=== PATIENT | female | born 1985 | race Caucasian/White ===

== ENCOUNTER 2021-01-22 10:38 | Emergency (ER) | payer BC, MEDICAID ==
[~2021-01-22] VITALS: Ht 149.9 cm; Wt 54.4 kg
--- NOTE | 2021-01-22 10:50 | NUR ---
BIB MOTHER FOR SACRAL ABSCESS X 2 WEEKS. RATES PAIN 6/10. WILL CONTINUE TO MONITOR THE PATIENT.
[2021-01-22] MEDS ORDERED: PROPOFOL 20 ML IV ONE (11:01)
[2021-01-22] MEDS ORDERED: LIDOCAINE 1%-EPI 1:100,000 20 ML VIAL ONE (11:06)
[2021-01-22] MEDS: LIDOCAINE 2%-EPI 1:100,000 30 ML VIAL TP ONE (11:19)
[2021-01-22] MEDS: PROPOFOL 200 MG/20 ML VIAL IV ONE (11:39)
--- NOTE | 2021-01-22 11:39 | NUR ---
125 MG DIPRIVAN GIVEN IN INCREMENTS PER DR ROJO AND UNDER DR ROJO SUPERVISION
--- NOTE | 2021-01-22 12:02 | NUR ---
THE PATIENT AWAKE, ALERT AND ORIENETD X3. MOTHER AT THE BEDSIDE. VSS STABLE
[2021-01-22] MEDS ORDERED: SULF1TAB48 PO (12:05)
--- NOTE | 2021-01-22 13:25 | NUR ---
The patient is alert and oriented x4. Denies pain. In room air and denies SOB. Respiration regular and unlabored. Oxygen saturation WNL. Patient discharged to home in stable condition. Written and verbal after care instructions given. Patient verbalizes understanding of instruction. The patient leaving the hospital with mother who is the responsible republican per patient and mother.
[2021-01-22 13:27] VITALS: BP 114/65
== END 2021-01-22 13:27 | disposition home or self-care (01) ==
LOC: ER 10:45
DX: K61.1 Rectal abscess (principal)
CPT/HCPCS: 46040; 99152; 99285; A6403 ×2; A6407; J2704; J3490; G0500

== ENCOUNTER 2021-01-24 15:10 | Emergency (ER) | payer BC ==
[~2021-01-24] VITALS: Ht 152.4 cm; Wt 63.5 kg
[~2021-01-24 15:10] MED LIST: SULF1TAB48 PO
[2021-01-24 15:22] VITALS: BP 107/78
--- NOTE | 2021-01-24 15:31 | NUR ---
BIB FAMILY (MOM) FOR FOR WOUND CHECK, I&D DONE 2 DAYS AGO. AOX4, NO SOB, NO S/O ANY ACUTE DISTRESS NOTED. DENIES PAIN. PATIENT KEPT COMFORTABLE. SAFETY PRECAUTIONS IN PLACE. WILL CONTINUE TO MONITOR
--- NOTE | 2021-01-24 15:57 | NUR ---
Patient discharged to home in stable condition. Written and verbal after care instructions given. Patient verbalizes understanding of instruction.
== END 2021-01-24 15:57 | disposition home or self-care (01) ==
LOC: ER 15:12
DX: Z48.01 Encounter for change or removal of surgical wound dressing (principal)
CPT/HCPCS: 99281; A6407

== ENCOUNTER 2021-01-27 13:49 | Emergency (ER) | payer BC ==
[~2021-01-27] VITALS: Ht 152.4 cm; Wt 63.5 kg
[2021-01-27 14:07] VITALS: BP 106/70
--- NOTE | 2021-01-27 14:14 | NUR ---
THE PATIENT BIB MOTHER FOR WOUND CHECK AND REQUESTING DRESSING CHANGE, SACRAL AREA. I&D 5 DAYS AGO. DENIES PAIN. WILL CONTINUE TO MONITOR THE PATIENT.
== END 2021-01-27 16:02 | disposition home or self-care (01) ==
LOC: ER 13:49
DX: Z48.01 Encounter for change or removal of surgical wound dressing (principal); L02.31 Cutaneous abscess of buttock
CPT/HCPCS: 99281; A6407

== ENCOUNTER 2021-10-13 09:03 | Emergency (ER) | payer BC ==
[~2021-10-13] VITALS: Ht 152.4 cm; Wt 64.0 kg
[2021-10-13] MEDS ORDERED: MONT10TA22 PO (09:39)
[2021-10-13] MEDS ORDERED: ALBU18HF2 INH ×2 (09:39→11:01)
[2021-10-13] MEDS ORDERED: ALBU8.5H8 IH (09:39)
[2021-10-13] MEDS ORDERED: BENZ200C53 PO ×2 (09:40→11:01)
[2021-10-13] MEDS ORDERED: CETI10TA14 PO (09:40)
[2021-10-13] MEDS ORDERED: predniSONE 20 MG TABLET ONE (09:54)
[2021-10-13] MEDS ORDERED: ALBUTEROL FS 2.5 MG/3 ML VIAL.NEB ONE (09:55)
[2021-10-13] MEDS ORDERED: IPRATROPIUM NEB FS 0.5 MG/2.5 ML AMPUL.NEB ONE (09:55)
[2021-10-13] MEDS ORDERED: IPRATROPIUM NEB FS 0.5 MG/2.5 ML AMPUL.NEB NEB ONE (10:00)
[2021-10-13] MEDS ORDERED: ALBUTEROL FS 2.5 MG/3 ML VIAL.NEB CONTNEB ONE (10:00)
[2021-10-13] MEDS ORDERED: predniSONE 20 MG TABLET PO ONE (10:00)
[2021-10-13] MEDS ORDERED: PRED20TA PO (11:01)
[2021-10-13 11:58] VITALS: BP 125/62
== END 2021-10-13 11:57 | disposition home or self-care (01) ==
LOC: ER 09:07
DX: J45.901 Unspecified asthma with (acute) exacerbation (principal); Z20.822 Contact with and (suspected) exposure to COVID-19; F79 Unspecified intellectual disabilities
CPT/HCPCS: 71045; 93005; 94644; 99285; C9803; J7512; U0003

== ENCOUNTER 2021-11-03 23:56 | Emergency (ER) | payer BC ==
[~2021-11-03] VITALS: Ht 152.4 cm; Wt 63.5 kg
[~2021-11-03 23:56] MED LIST changes: +ALBU18HF2 INH; +ALBU8.5H8 IH; +BENZ200C53 PO; +CETI10TA14 PO; +MONT10TA22 PO; +PRED20TA PO; -SULF1TAB48 PO
--- NOTE | 2021-11-04 00:10 | NUR ---
BIBS FOR C/O SOB AND COUGH. HX ASTHMA. ALBUTEROL INHALER USED ENTRY MANAGER WITHOUT RELIEF. WHEEZES NOTED BILAT ON AUSULTATION. PT INCREASED RR ANDDIFFICULTY SPEAKING FULL SENTENCES. 96% ON RA. PLACED ON SUPPLEMENTAL O2 AND RT PAGED. CONSERVATOR AT BEDSIDE.
[2021-11-04] MEDS ORDERED: IPRATROPIUM NEB FS 0.5 MG/2.5 ML AMPUL.NEB ONE (00:12)
[2021-11-04] MEDS ORDERED: ALBUTEROL FS 2.5 MG/3 ML VIAL.NEB ONE (00:12)
--- NOTE | 2021-11-04 00:12 | NUR ---
RT AT BEDSIDE FOR BREATHING TX
--- NOTE | 2021-11-04 00:15 | NUR ---
PREG WAIVER SIGNED XRAY CALLED AND NOTIFIED
--- NOTE | 2021-11-04 00:19 | NUR ---
XRAY AT BEDSIDE
[2021-11-04] MEDS ORDERED: DEXAMETHASONE SOD PHOSPHATE 10 MG/ML VIAL ONE (00:29)
[2021-11-04] MEDS ORDERED: ALBUTEROL FS 2.5 MG/3 ML VIAL.NEB CONTNEB ONE (00:30)
[2021-11-04] MEDS ORDERED: DEXAMETHASONE SOD PHOSPHATE 4 MG/ML VIAL IM ONE (00:30)
[2021-11-04] MEDS ORDERED: IPRATROPIUM NEB FS 0.5 MG/2.5 ML AMPUL.NEB NEB ONE (00:30)
[2021-11-04] MEDS ORDERED: ALBUTEROL FS 2.5 MG/0.5 ML VIAL.NEB NEB ONE ×2 (00:30→02:00)
[2021-11-04] MEDS ORDERED: Magnesium 1GM/D5W 100ML PREMIX 100 ML IV ONE ×2 (01:42→02:37)
[2021-11-04] MEDS ORDERED: ALBUTEROL FS 2.5 MG/0.5 ML VIAL.NEB ONE (01:48)
[2021-11-04] MEDS ORDERED: Magnesium 1GM/D5W 100ML PREMIX 200 ML IV ONE (02:00)
--- NOTE | 2021-11-04 03:01 | NUR ---
eben (conservator/mom)
[2021-11-04] MEDS ORDERED: ALBU2.5V38 NEB (03:22)
[2021-11-04] MEDS ORDERED: PRED50TA PO (03:22)
--- NOTE | 2021-11-04 03:50 | NUR ---
ATTEMPTED TO CALL CONSERVATOR. NO PICKUP.
--- NOTE | 2021-11-04 04:14 | NUR ---
Called Estrella (conservator/mom) for PT to be D/C & picked up, with no parts picker. Left voice message.
--- NOTE | 2021-11-04 05:18 | NUR ---
Called Estrella (conservator/mom) for PT to be D/C & picked up, with no moss picker.
[2021-11-04 05:53] VITALS: BP 123/82
--- NOTE | 2021-11-04 05:53 | NUR ---
Patient discharged to home in stable condition. Written and verbal after care instructions given. Patient verbalizes understanding of instruction. IV removed and Pt picked up by father.
== END 2021-11-04 05:53 | disposition home or self-care (01) ==
LOC: ER 23:59
DX: J98.01 Acute bronchospasm (principal); Z86.69 Personal history of other diseases of the nervous system and sense organs; Z88.0 Allergy status to penicillin; Z79.899 Other long term (current) drug therapy
CPT/HCPCS: 71045; 94640; 94644; 96365; 96366; 96372; 99285; J1100; J3475 ×2

== ENCOUNTER 2022-01-12 15:03 | Emergency (ER) | payer BC ==
[~2022-01-12] VITALS: Ht 152.4 cm; Wt 63.5 kg
[~2022-01-12 15:03] MED LIST changes: +ALBU2.5V38 NEB; +PRED50TA PO
--- NOTE | 2022-01-12 15:18 | NUR ---
PT C/O ASTHMA ATTACK, O2 SAT 92%RA. PLACED ON 2L OF O2. DENIES CP, DIZZINESS, N/V AT THIS TIME. AWAITING EVAL BY ERMD & WILL CONT TO MONITOR.
[2022-01-12] MEDS ORDERED: predniSONE 20 MG TABLET PO ONE (16:00)
[2022-01-12] MEDS ORDERED: IPRATROPIUM NEB FS 0.5 MG/2.5 ML AMPUL.NEB NEB ONE (16:00)
[2022-01-12] MEDS ORDERED: ALBUTEROL FS 2.5 MG/3 ML VIAL.NEB NEB ONE (16:00)
[2022-01-12] MEDS ORDERED: predniSONE 20 MG TABLET ONE (16:10)
[2022-01-12] MEDS ORDERED: ALBUTEROL FS 2.5 MG/0.5 ML VIAL.NEB ONE (16:21)
[2022-01-12] MEDS ORDERED: IPRATROPIUM NEB FS 0.5 MG/2.5 ML AMPUL.NEB ONE (16:21)
[2022-01-12] MEDS ORDERED: ALBU18HF2 INH (18:03)
[2022-01-12] MEDS ORDERED: PRED50TA PO (18:03)
--- NOTE | 2022-01-12 18:09 | NUR ---
Patient discharged to home in stable condition. Written and verbal after care instructions given. Patient verbalizes understanding of instruction.
[2022-01-12 18:10] VITALS: BP 127/74
== END 2022-01-12 18:10 | disposition home or self-care (01) ==
LOC: ER 15:41
DX: J45.901 Unspecified asthma with (acute) exacerbation (principal); Z88.0 Allergy status to penicillin; Z79.899 Other long term (current) drug therapy
CPT/HCPCS: 99283; 94640; J7512

== ENCOUNTER 2022-01-26 12:29 | Emergency (ER) | payer BC ==
[~2022-01-26] VITALS: Ht 152.4 cm; Wt 49.0 kg
[2022-01-26] MEDS ORDERED: ALBU8.5H8 INH (12:49)
[2022-01-26] MEDS ORDERED: PRED50TA PO (12:49)
--- NOTE | 2022-01-26 13:24 | NUR ---
Patient discharged to home in stable condition. Written and verbal after care instructions given. Patient verbalizes understanding of instruction.
[2022-01-26 13:25] VITALS: BP 108/61
== END 2022-01-26 13:25 | disposition home or self-care (01) ==
LOC: ER 12:32
DX: J45.901 Unspecified asthma with (acute) exacerbation (principal); J45.909 Unspecified asthma, uncomplicated; Z88.0 Allergy status to penicillin; Z79.899 Other long term (current) drug therapy

== ENCOUNTER 2022-02-06 18:17 | Emergency (ER) | payer BC ==
[~2022-02-06] VITALS: Ht 152.4 cm; Wt 68.5 kg
[~2022-02-06 18:17] MED LIST changes: +ALBU8.5H8 INH
--- NOTE | 2022-02-06 18:21 | NUR ---
CAME IN ACCOMPANIED BY SISTER "ASTHMA ATTACK SINCE LAST NIGHT" TO ER BED 6, HOOKED TO MONITOR, CHANGED TO HOSP GOWN, WARM BLANKET PROVIDED. ON 4LPM O2 VIA NC, O2 SATURATION AT 97%.
--- NOTE | 2022-02-06 18:35 | NUR ---
DR ORTIZ AT BEDSIDE
[2022-02-06] MEDS ORDERED: methylPREDNISolone SOD SUCC 125 MG/2ML VIAL ONE (18:42)
[2022-02-06] MEDS ORDERED: Magnesium 1GM/D5W 100ML PREMIX 100 ML IV ONE ×2 (18:42→19:16)
[2022-02-06] MEDS ORDERED: IPRATROPIUM NEB FS 0.5 MG/2.5 ML AMPUL.NEB ONE (18:47)
[2022-02-06] MEDS ORDERED: ALBUTEROL FS 2.5 MG/3 ML VIAL.NEB ONE (18:47)
[2022-02-06] MEDS ORDERED: Magnesium 1GM/D5W 100ML PREMIX 200 ML IV ONE (19:00)
[2022-02-06] MEDS ORDERED: IPRATROPIUM NEB FS 0.5 MG/2.5 ML AMPUL.NEB NEB ONE (19:00)
[2022-02-06] MEDS ORDERED: methylPREDNISolone SOD SUCC 125 MG/2ML VIAL IV ONE (19:00)
[2022-02-06] MEDS ORDERED: ALBUTEROL FS 2.5 MG/3 ML VIAL.NEB NEB ONE (19:00)
--- NOTE | 2022-02-06 19:02 | NUR ---
ONGOING BREATHING TX
[2022-02-06] MEDS ORDERED: MOME13HF2 INH (19:57)
--- NOTE | 2022-02-06 19:57 | NUR ---
Patient discharged to home in stable condition. Written and verbal after care instructions given. Patient verbalizes understanding of instruction.
[2022-02-06] MEDS ORDERED: ALBU18HF2 INH (20:09)
[2022-02-06 20:23] VITALS: BP 121/70
== END 2022-02-06 20:23 | disposition home or self-care (01) ==
LOC: ER 18:21
DX: J45.901 Unspecified asthma with (acute) exacerbation (principal); R05.9 Cough, unspecified; Z88.0 Allergy status to penicillin; Z79.899 Other long term (current) drug therapy
CPT/HCPCS: 99284; 96365; 96366; 96375; 93005; 94640; J2930; J3475 ×2

== ENCOUNTER 2022-02-16 16:50 | Emergency (ER) | payer BC ==
[~2022-02-16] VITALS: Ht 144.8 cm; Wt 72.6 kg
[~2022-02-16 16:50] MED LIST changes: +MOME13HF2 INH
--- NOTE | 2022-02-16 17:15 | NUR ---
BIBS C/O "Have asthma/sob going on x4mos- worse today". AMBULATORY, PLACED ON BED, BREATHING EVEN AND UNLABORED SATURATING AT 92%RA
[2022-02-16] MEDS ORDERED: IPRATROPIUM NEB FS 0.5 MG/2.5 ML AMPUL.NEB ONE ×3 (17:25→20:40)
[2022-02-16] MEDS ORDERED: ALBUTEROL FS 2.5 MG/3 ML VIAL.NEB ONE ×3 (17:25→20:39)
[2022-02-16] MEDS ORDERED: IV NS 0.9% 1,000 ML IV ONE (17:30)
[2022-02-16] MEDS ORDERED: IPRATROPIUM NEB FS 0.5 MG/2.5 ML AMPUL.NEB NEB ONE ×3 (17:30→21:00)
[2022-02-16] MEDS ORDERED: methylPREDNISolone SOD SUCC 125 MG/2ML VIAL IV ONE (17:30)
[2022-02-16] MEDS ORDERED: ALBUTEROL FS 2.5 MG/3 ML VIAL.NEB NEB ONE ×3 (17:30→21:00)
[2022-02-16] MEDS ORDERED: methylPREDNISolone SOD SUCC 125 MG/2ML VIAL ONE (17:35)
--- NOTE | 2022-02-16 18:05 | NUR ---
X-RAY TECH AT BED SIDE
[2022-02-16] MEDS ORDERED: PRED50TA PO (20:53)
[2022-02-16] MEDS ORDERED: ALBU8.5H8 INH (20:53)
--- NOTE | 2022-02-16 21:00 | NUR ---
IV removed. Catheter intact and site benign. Pressure and 4x4 applied to site. No bleeding noted.Patient discharged to home in stable condition. Written and verbal after care instructions given. Patient verbalizes understanding of instruction.
[2022-02-16 22:00] VITALS: BP 120/70
== END 2022-02-16 21:03 | disposition home or self-care (01) ==
LOC: ER 16:51
DX: J45.901 Unspecified asthma with (acute) exacerbation (principal); Z88.0 Allergy status to penicillin; Z79.899 Other long term (current) drug therapy
CPT/HCPCS: 99285; 96374; 71045; 96361; 94799 ×2; 94640 ×2; J2930; J7030

== ENCOUNTER 2022-08-10 10:21 | Emergency (ER) | payer BC ==
[~2022-08-10] VITALS: Ht 152.4 cm; Wt 63.5 kg
--- NOTE | 2022-08-10 10:40 | NUR ---
PT WALKED INTO ER C/O SOB X 3 DAYS. O2 SAT 96%. PLACED IN BED AND MONITOR. BILATERAL WHEEZING AUSCULTATED.
[2022-08-10] MEDS ORDERED: predniSONE 20 MG TABLET ONE (10:53)
[2022-08-10] MEDS ORDERED: predniSONE 20 MG TABLET PO ONE (11:00)
[2022-08-10] MEDS ORDERED: IPRATROPIUM NEB FS 0.5 MG/2.5 ML AMPUL.NEB NEB ONE (11:00)
[2022-08-10] MEDS ORDERED: ALBUTEROL FS 2.5 MG/3 ML VIAL.NEB NEB ONE (11:00)
[2022-08-10] MEDS ORDERED: ALBUTEROL FS 2.5 MG/3 ML VIAL.NEB ONE (12:04)
[2022-08-10] MEDS ORDERED: IPRATROPIUM NEB FS 0.5 MG/2.5 ML AMPUL.NEB ONE (12:05)
--- NOTE | 2022-08-10 12:17 | NUR ---
PT RECEIVING BREATHING TREATMENT REPORT BREATHING IS EASIER NOW AND FEELING BETTER.
[2022-08-10] MEDS ORDERED: ALBU18HF2 INH (12:49)
[2022-08-10] MEDS ORDERED: PRED50TA PO (12:49)
[2022-08-10] MEDS ORDERED: ALBU0.633 NEB (12:49)
[2022-08-10 14:21] VITALS: BP 142/67
== END 2022-08-10 13:40 | disposition home or self-care (01) ==
LOC: ER 10:23
DX: J45.901 Unspecified asthma with (acute) exacerbation (principal); R05.9 Cough, unspecified; Z79.899 Other long term (current) drug therapy; Z88.0 Allergy status to penicillin
CPT/HCPCS: 99285; 94640; J7512

== ENCOUNTER 2022-08-25 04:16 | Emergency (ER) | payer BC ==
[~2022-08-25] VITALS: Ht 152.4 cm; Wt 70.9 kg
[~2022-08-25 04:16] MED LIST changes: +ALBU0.633 NEB
--- NOTE | 2022-08-25 04:25 | NUR ---
BIBCONSERVATOR THIS 37/F WITH CC OF SOB. PT IS KNOWN ASTHMATIC AND BEEN TAKING PREDNISONE AND ALBUTEROL HHI AT HOME. ASTHMA ATTACK STARTED 2 HRS AGO, SHE RUN OUT OF INHALER. PATIENT +WHEEZING BILATERAL LUNGS, - CP. AAOX4. ABLE TO AMBULATE AND MAKE NEEDS KNOWN. PLACED COMFORTABLY IN BED. VITALS CHECKED.
--- NOTE | 2022-08-25 04:30 | NUR ---
RT CALLED FOR BREATHING TX
[2022-08-25] MEDS ORDERED: IPRATROPIUM NEB FS 0.5 MG/2.5 ML AMPUL.NEB ONE ×3 (04:37→06:31)
[2022-08-25] MEDS ORDERED: ALBUTEROL FS 2.5 MG/3 ML VIAL.NEB ONE ×4 (04:37→06:31)
[2022-08-25] MEDS ORDERED: LORAZEPAM 1 MG TABLET ONE (04:45)
[2022-08-25] MEDS ORDERED: predniSONE 20 MG TABLET ONE (04:45)
--- NOTE | 2022-08-25 04:45 | NUR ---
RT AT PT'S BEDSIDE FOR BREATHING TX
[2022-08-25] MEDS ORDERED: LORAZEPAM 1 MG TABLET PO ONE (05:00)
[2022-08-25] MEDS ORDERED: ALBUTEROL FS 2.5 MG/3 ML VIAL.NEB CONTNEB ONE ×3 (05:00→06:30)
[2022-08-25] MEDS ORDERED: predniSONE 50 MG TABLET PO ONE (05:00)
[2022-08-25] MEDS ORDERED: IPRATROPIUM NEB FS 0.5 MG/2.5 ML AMPUL.NEB NEB ONE ×3 (05:00→06:30)
[2022-08-25] MEDS ORDERED: ALBU2.5V13 NEB (06:28)
[2022-08-25] MEDS ORDERED: LORA-259 PO (06:29)
[2022-08-25] MEDS ORDERED: NEBU-171 MC (06:29)
[2022-08-25] MEDS ORDERED: PRED20TA PO (06:29)
--- NOTE | 2022-08-25 07:00 | NUR ---
Patient discharged to home in stable condition. Written and verbal after care instructions given. Patient verbalizes understanding of instruction. Discharge patient given to patient's conservator. Patient will be discharge soon
[2022-08-25 07:02] VITALS: BP 121/69
[2022-08-25] MEDS ORDERED: LORA10TA68 PO (07:02)
== END 2022-08-25 07:02 | disposition home or self-care (01) ==
LOC: ER 04:21
DX: J45.901 Unspecified asthma with (acute) exacerbation (principal); Z79.899 Other long term (current) drug therapy; Z88.0 Allergy status to penicillin
CPT/HCPCS: 99291; 94640 ×3; J7512

== ENCOUNTER 2023-04-28 05:55 | Emergency (ER) | payer BC ==
[~2023-04-28] VITALS: Ht 152.4 cm; Wt 70.3 kg
[~2023-04-28 05:55] MED LIST changes: +ALBU2.5V13 NEB; +LORA-259 PO; +LORA10TA68 PO; +NEBU-171 MC
[2023-04-28] MEDS ORDERED: IPRATROPIUM NEB FS 0.5 MG/2.5 ML AMPUL.NEB ONE ×2 (06:23→08:38)
[2023-04-28] MEDS ORDERED: ALBUTEROL FS 2.5 MG/0.5 ML VIAL.NEB ONE (06:23)
[2023-04-28 06:26] VITALS: O2SAT 96
[2023-04-28] MEDS ORDERED: predniSONE 20 MG TABLET PO ONE (06:30)
[2023-04-28] MEDS ORDERED: ALBUTEROL FS 2.5 MG/3 ML VIAL.NEB NEB ONE ×2 (06:30→08:30)
[2023-04-28] MEDS ORDERED: IPRATROPIUM NEB FS 0.5 MG/2.5 ML AMPUL.NEB NEB ONE ×2 (06:30→08:30)
[2023-04-28 06:41] VITALS: O2SAT 98
[2023-04-28] MEDS ORDERED: predniSONE 20 MG TABLET ONE (07:18)
[2023-04-28] MEDS ORDERED: ALBUTEROL FS 2.5 MG/3 ML VIAL.NEB ONE (08:38)
[2023-04-28 08:43] VITALS: O2SAT 95
[2023-04-28 08:58] VITALS: O2SAT 98
[2023-04-28] MEDS ORDERED: PRED50TA PO (09:51)
[2023-04-28 09:58] VITALS: BP 134/81; TEMP 98.1; O2SAT 95
== END 2023-04-28 09:58 | disposition home or self-care (01) ==
LOC: ER 06:12
DX: J45.901 Unspecified asthma with (acute) exacerbation (principal); Z88.0 Allergy status to penicillin; Z79.51 Long term (current) use of inhaled steroids; Z79.899 Other long term (current) drug therapy
CPT/HCPCS: 99285; 71045; 94640 ×2; J7512

== ENCOUNTER 2023-05-23 18:46 | Emergency (ER) | payer BC ==
[~2023-05-23] VITALS: Ht 152.4 cm; Wt 70.8 kg
[2023-05-23] MEDS ORDERED: predniSONE 20 MG TABLET PO ONE (20:00)
[2023-05-23] MEDS ORDERED: ALBUTEROL FS 2.5 MG/3 ML VIAL.NEB NEB ONE (20:00)
[2023-05-23] MEDS ORDERED: IPRATROPIUM NEB FS 0.5 MG/2.5 ML AMPUL.NEB NEB ONE (20:00)
[2023-05-23] MEDS ORDERED: predniSONE 20 MG TABLET ONE (20:05)
[2023-05-23] MEDS ORDERED: ALBUTEROL FS 2.5 MG/3 ML VIAL.NEB ONE (20:14)
[2023-05-23] MEDS ORDERED: IPRATROPIUM NEB FS 0.5 MG/2.5 ML AMPUL.NEB ONE (20:14)
[2023-05-23 20:18] VITALS: O2SAT 95
[2023-05-23 20:33] VITALS: O2SAT 99
[2023-05-23 21:06] VITALS: BP 138/80; TEMP 98.1; O2SAT 99
[2023-05-23] MEDS ORDERED: PRED20TA PO (21:09)
[2023-05-23] MEDS ORDERED: FLUT100D INH (21:09)
== END 2023-05-23 22:05 | disposition home or self-care (01) ==
LOC: ER 18:49
DX: J45.901 Unspecified asthma with (acute) exacerbation (principal); Z88.0 Allergy status to penicillin; Z79.51 Long term (current) use of inhaled steroids; Z79.899 Other long term (current) drug therapy
CPT/HCPCS: 99283; 94640; J7512

== ENCOUNTER 2023-07-07 10:52 | Emergency (ER) | payer BC ==
[~2023-07-07] VITALS: Ht 152.4 cm; Wt 72.6 kg
[~2023-07-07 10:52] MED LIST changes: +FLUT100D INH
[2023-07-07] MEDS ORDERED: predniSONE 20 MG TABLET ONE (11:43)
[2023-07-07] MEDS: predniSONE 20 MG TABLET PO ONE (11:48)
[2023-07-07] MEDS ORDERED: ALBUTEROL FS 2.5 MG/3 ML VIAL.NEB ONE (11:54)
[2023-07-07] MEDS ORDERED: IPRATROPIUM NEB FS 0.5 MG/2.5 ML AMPUL.NEB ONE (11:55)
[2023-07-07 11:57] VITALS: O2SAT 95
[2023-07-07] MEDS: IPRATROPIUM NEB FS 0.5 MG/2.5 ML AMPUL.NEB NEB ONE (11:57)
[2023-07-07] MEDS: ALBUTEROL FS 2.5 MG/3 ML VIAL.NEB CONTNEB ONE (11:57)
[2023-07-07 12:12] VITALS: O2SAT 98
[2023-07-07] MEDS ORDERED: BECL10.6 INH (12:27)
[2023-07-07 12:37] VITALS: BP 114/78; TEMP 97.8; O2SAT 98
== END 2023-07-07 12:38 | disposition home or self-care (01) ==
LOC: ER 10:57
DX: J45.901 Unspecified asthma with (acute) exacerbation (principal); Z79.899 Other long term (current) drug therapy; Z88.0 Allergy status to penicillin
CPT/HCPCS: 99283; 94640; J7512

== ENCOUNTER 2024-04-22 20:25 | Emergency (ER) | payer BC ==
[~2024-04-22] VITALS: Ht 152.4 cm; Wt 74.4 kg
[~2024-04-22 20:25] MED LIST changes: +BECL10.6 INH
[2024-04-22] MEDS ORDERED: IPRATROPIUM NEB FS 0.5 MG/2.5 ML AMPUL.NEB ONE (20:54)
[2024-04-22] MEDS ORDERED: ALBUTEROL FS 2.5 MG/3 ML VIAL.NEB ONE (20:54)
[2024-04-22] MEDS: IPRATROPIUM NEB FS 0.5 MG/2.5 ML AMPUL.NEB NEB ONE (20:55)
[2024-04-22] MEDS: ALBUTEROL FS 2.5 MG/3 ML VIAL.NEB CONTNEB ONE (20:55)
[2024-04-22 20:58] VITALS: O2SAT 95
[2024-04-22 21:00] VITALS: BP 134/76; TEMP 98
[2024-04-22] MEDS ORDERED: predniSONE 20 MG TABLET ONE (21:24)
[2024-04-22] MEDS: predniSONE 20 MG TABLET PO ONE (21:40)
[2024-04-22] MEDS ORDERED: PRED50TA PO (21:53)
[2024-04-22] MEDS ORDERED: ALBU6.7H9 INH (21:53)
[2024-04-22 22:01] VITALS: O2SAT 98
[2024-04-22 22:15] VITALS: O2SAT 96
== END 2024-04-22 22:16 | disposition home or self-care (01) ==
LOC: ER 20:27
DX: J45.901 Unspecified asthma with (acute) exacerbation (principal); Z79.51 Long term (current) use of inhaled steroids; Z79.52 Long term (current) use of systemic steroids; Z79.899 Other long term (current) drug therapy; Z88.0 Allergy status to penicillin; Z86.69 Personal history of other diseases of the nervous system and sense organs
CPT/HCPCS: 99285; 94644; J7512